=== PATIENT | male | born 1960 | race Caucasian/White ===

== ENCOUNTER → 2021-02-18 11:04 | Outpatient (CLI) | payer MEDICARE, SELFPAY ==
[2021-02-18 11:56] LABS: COVID19 -Nasal RAPID Negative (Negative)
== END ==
PROVIDERS: PCP Student in an Organized Health Care Education/Training Program; Referring Provider Internal Medicine; Visit Provider Internal Medicine
DX: Z20.822 Contact with and (suspected) exposure to COVID-19 (principal)
CPT/HCPCS: 87635; C9803

== ENCOUNTER → 2021-02-19 14:43 | Outpatient (CLI) | payer MEDICARE, SELFPAY ==
--- NOTE | 2021-02-24 08:41 | PM.PFT.1 ---
Pulmonary Function Test Referral & Results Date Patient Seen: 02/19/21 Requesting provider: Waqas Ashraf Results: The spirometry demonstrates an FVC of 4.02 L which is 74% of predicted. The FEV1 was measured at 2.34 L which is 57% of predicted. The FEV1/FVC ratio was 58 which is 77% of predicted. Following the administration of bronchodilator there was no appreciable change Lung volumes show an SVC of 3.95 L which is 74% of predicted. The diffusing capacity was measured at 34.19 which is 90% of predicted. The maximum voluntary ventilation was reduced Interpretation: This study demonstrates moderate obstructive lung disease without evidence of benefit following bronchodilator administration There is also [id number] restrictive lung disease based on reduction SVC Clinical correlation suggested
== END ==
PROVIDERS: PCP Student in an Organized Health Care Education/Training Program; Referring Provider Student in an Organized Health Care Education/Training Program; Visit Provider Student in an Organized Health Care Education/Training Program
DX: R06.02 Shortness of breath (principal)
CPT/HCPCS: 94060; 94726; 94729